=== PATIENT | female | born 1975 | race Caucasian/White ===

== ENCOUNTER 2024-02-12 07:17 | Day surgery (SDC) | payer MEDICAID, OTHER ==
[~2024-02-12] VITALS: Ht 177.8 cm; Wt 100.7 kg
[~2024-02-12 07:17] MED LIST: CEFAZOLIN SOD 2 GM in D5W 50 ML IV ONE
[2024-02-12 07:52] LABS: HCG,QUAL RESULT NEGATIVE (NEGATIVE)
[2024-02-12] MEDS ORDERED: HYDROmorphone 2 MG/ML VIAL ONE (09:04)
[2024-02-12] MEDS ORDERED: MORPHINE 4 MG INJ. 4 MG/ML VIAL IVP PRN ×2 (09:45)
[2024-02-12] MEDS ORDERED: HYDROmorphone 1 MG/ML INJ. CARTRIDGE IVP PRN (09:45)
[2024-02-12] MEDS ORDERED: DEXAMETHASONE SOD PHOSPHATE 4 MG/ML VIAL ONE (10:14)
[2024-02-12] MEDS ORDERED: D5/0.45 NS 1,000 ML IV SCH (10:30)
[2024-02-12 11:19] VITALS: O2SAT 100
[2024-02-12] MEDS ORDERED: ONDANSETRON HCL 4 MG/2 ML VIAL ONE (12:24)
[2024-02-12] MEDS: ONDANSETRON HCL 4 MG/2 ML VIAL IVP PRN (12:24)
[2024-02-12] MEDS ORDERED: METOCLOPRAMIDE HCL 10 MG/2 ML VIAL ONE (13:27)
[2024-02-12] MEDS: METOCLOPRAMIDE HCL 10 MG/2 ML VIAL IVP PRN (13:30)
[2024-02-12 18:03] VITALS: BP_SYST 110; PULSE 72; RESP 16
== END 2024-02-12 15:05 | disposition home or self-care (01) ==
LOC: SDS 07:17 → SMU 07:17 → SDS 15:05
PROVIDERS: ATTEND Colon & Rectal Surgery
DX: N63.10 Unspecified lump in the right breast, unspecified quadrant (principal); N60.21 Fibroadenosis of right breast; K21.9 Gastro-esophageal reflux disease without esophagitis; Z90.49 Acquired absence of other specified parts of digestive tract
CPT/HCPCS: 87081; 19120; 84703; 93005; 88305; J3490; J0690; J1100; J2765; J2405; J2704; J0330; J1170; J7060